=== PATIENT | female | born 1985 | race Caucasian/White ===

== ENCOUNTER 2016-11-22 13:22 | Inpatient (IN) | payer OTHER ==
[~2016-11-22] VITALS: Ht 160 cm; Wt 70.9 kg
[2016-11-22 14:23] VITALS: BP 134/86
[2016-11-22] MEDS ORDERED: OXYTOCIN 30U/ 0.9% NaCL 500ML 500 ML IV PRN (15:11)
[2016-11-22] MEDS ORDERED: OXYTOCIN 30U/ 0.9% NaCL 500ML 500 ML IV ONE (15:11)
[2016-11-22] MEDS: D5%-LACTATED RINGERS 1,000 ML IV SCH ×2 (15:11→23:11)
[2016-11-22] MEDS: LACTATED RINGERS 1,000 ML IV SCH ×2 (15:19→23:11)
[2016-11-22] MEDS ORDERED: FERR324T5 PO (15:23)
[2016-11-22] MEDS ORDERED: PREN1TAB60 PO (15:23)
[2016-11-22] MEDS ORDERED: NEWBORN KIT ONE (15:26)
[2016-11-22] MEDS ORDERED: OXYTOCIN 30U/ 0.9% NaCL 500ML 500 ML ONE (15:26)
[2016-11-22] MEDS ORDERED: ONDANSETRON 2MG/ML, 2ML IVPush PRN (15:30)
[2016-11-22] MEDS ORDERED: FENTANYL PF 100 MCG/2ML IVPush PRN (15:30)
[2016-11-22] MEDS ORDERED: FENTANYL PF 100 MCG/2ML IV PRN (15:30)
[2016-11-22] MEDS ORDERED: TERBUTALINE 1 MG/ML, 1ML IVPush PRN (15:30)
[2016-11-22] MEDS ORDERED: FENTANYL PF 100 MCG/2ML ONE (18:09)
[2016-11-22] MEDS: OXYTOCIN 30U/ 0.9% NaCL 500ML 500 ML IV SCH (18:41)
[2016-11-22] MEDS ORDERED: IBUPROFEN 600 MG TABLET ONE (18:50)
[2016-11-22] MEDS ORDERED: IBUPROFEN 800 MG TABLET PO PRN (19:00)
[2016-11-22] MEDS ORDERED: ACETAMINOPHEN 325 MG TABLET PO PRN ×3 (19:00)
[2016-11-22] MEDS ORDERED: MISOPROSTOL 200 MCG TABLET PR PRN (19:00)
[2016-11-22] MEDS ORDERED: RHOGAM FROM BLOOD BANK 1 NOTE EA IM/IV ONE (19:00)
[2016-11-22] MEDS ORDERED: METHYLERGONOVINE 0.2 MG/ML IM PRN (19:00)
[2016-11-22] MEDS ORDERED: BISACODYL 10 MG SUPP PR PRN (19:00)
[2016-11-22] MEDS ORDERED: OXYcodone/APAP 5/325MG TABLET PO PRN ×2 (19:00)
[2016-11-22] MEDS ORDERED: GLYCERIN ADULT SUPP PR PRN (19:00)
[2016-11-22] MEDS ORDERED: DOCUSATE 100 MG CAPSULE PO PRN (19:00)
[2016-11-22] MEDS ORDERED: ONDANSETRON 2MG/ML, 2ML IV PRN (19:00)
[2016-11-22] MEDS ORDERED: OXYTOCIN 10 UNITS/ML, 1ML IM PRN (19:00)
[2016-11-22] MEDS ORDERED: CALCIUM CARBONATE 500 MG TAB.CHEW PO PRN (19:00)
[2016-11-22] MEDS ORDERED: IBUPROFEN 600 MG TABLET PO PRN (19:30)
[2016-11-22 22:30] VITALS: BP 119/79
[2016-11-23 02:00] VITALS: BP 112/72
[2016-11-23] MEDS: OXYTOCIN 30U/ 0.9% NaCL 500ML 500 ML IV SCH (04:41)
[2016-11-23] MEDS: D5%-LACTATED RINGERS 1,000 ML IV SCH (07:11)
[2016-11-23] MEDS: LACTATED RINGERS 1,000 ML IV SCH (07:11)
[2016-11-23 08:52] VITALS: BP 102/67
[2016-11-23] MEDS ORDERED: PRENATAL VIT/IRON/FA 1 EACH TABLET PO SCH (09:00)
[2016-11-23 12:30] VITALS: BP 111/76
[2016-11-23] MEDS ORDERED: OXYC-302 PO (15:00)
[2016-11-23] MEDS ORDERED: IBUP-1222 PO (15:01)
== END 2016-11-23 16:30 | disposition home or self-care (01) | DRG 775 ==
LOC: LDIP 13:22 → 2NW 22:02
PROVIDERS: ADMIT Obstetrics & Gynecology; ATTEND Obstetrics & Gynecology
PROC: 10E0XZZ Delivery of Products of Conception, External Approach (ICD-10-PCS; principal; 2016-11-22)
PROC: 10907ZC Drainage of Amniotic Fluid, Therapeutic from Products of Conception, Via Natural or Artificial Opening (ICD-10-PCS; 2016-11-22)
PROC: 3E033VJ Introduction of Other Hormone into Peripheral Vein, Percutaneous Approach (ICD-10-PCS; 2016-11-22)
DX: O48.0 Post-term pregnancy (principal); Z37.0 Single live birth; Z3A.40 40 weeks gestation of pregnancy; O24.420 Gestational diabetes mellitus in childbirth, diet controlled; O99.334 Smoking (tobacco) complicating childbirth; F17.200 Nicotine dependence, unspecified, uncomplicated
CPT/HCPCS: 36415; 82947; 85025; 86850; 86900; J2590; J7120